=== PATIENT | female | born 1980 | race Caucasian/White ===

== ENCOUNTER 2020-11-12 17:57 | Emergency (ER) | payer BC ==
[2020-11-12] MEDS ORDERED: TETANUS/DIPHTHERIA/PERTUSSIS 0.5 ML SYRINGE IM ONE (18:44)
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
[2020-11-12 19:03] VITALS: BP 138/92
== END 2020-11-12 19:04 | disposition home or self-care (01) ==
LOC: ED 17:57
DX: T23.232A Burn of second degree of multiple left fingers (nail), not including thumb, initial encounter (principal); X13.1XXA Other contact with steam and other hot vapors, initial encounter; Y93.G3 Activity, cooking and baking; Z23 Encounter for immunization
CPT/HCPCS: 90471; 99282; 99283